=== PATIENT | male | born 1940 | race Caucasian/White ===

== ENCOUNTER 2017-02-15 18:15 | Emergency (ER) | payer MEDICARE, BC ==
[2017-02-15] MEDS ORDERED: Sodium Chloride 0.9% 1,000 ML IV SCH (19:15)
--- NOTE | 2017-02-16 08:10 | CT ---
DATE OF SERVICE: 02/15/17 CLINICAL DATA: Neuro symptoms UNENHANCED BRAIN CT: Multislice acquisition through the brain without IV contrast was performed. No priors. There is mild diffuse cerebral atrophy. There are periventricular lucencies bilaterally consistent with small vessel ischemic change. No masses or mass effect. No intracranial hemorrhage. No evidence of acute or subacute infarct. No osseous abnormalities. IMPRESSION: No acute intracranial abnormalities. [id number] [facility]
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
== END 2017-02-15 20:50 | disposition home or self-care (01) ==
LOC: LB.ED 18:15
DX: G45.4 Transient global amnesia (principal); Z88.5 Allergy status to narcotic agent
CPT/HCPCS: 36415; 70450; 80053; 82306; 82607; 84443; 84484; 85025; 85379; 93005; 96360; 96361; 99284; A0425; A0429; J7040